=== PATIENT | female | born 1980 | race Caucasian/White ===

== ENCOUNTER 2025-01-15 14:06 | Inpatient (IN) ==
--- NOTE | 2025-01-15 14:42 | Emergency Department Note ---
Impression & Plan Abdominal pain, Nausea & vomiting, Elevated LFTs, Status post cholecystectomy ED Provider Note CHIEF COMPLAINT: Nausea and vomiting HISTORY OF PRESENTING ILLNESS: This 44-year-old female patient presents to the emergency department for evaluation of nausea, vomiting, and abdominal pain. The patient had her gallbladder removed yesterday by Dr. Hollingsworth for acute cholecystitis. Gallbladder ultrasound yesterday showed gallbladder stones and sludge with a positive Serna sign and mild wall thickening suggesting acute cholecystitis. Common bile duct was normal. No evidence of choledocholithiasis or biliary obstruction. White blood cell count elevated at 12.27, but CBC otherwise normal. CMP was normal without elevated LFTs. Lipase was normal. She was given IV Zosyn preoperatively. She has had uncontrolled nausea and vomiting at home and has been unable to keep anything down. She has been taking Zofran and oxycodone without improvement of her pain or nausea. She still has an abdominal binder in place. She has had chills, but no fever. The abdominal pain is diffuse over her abdomen. The patient has not been passing gas or having any bowel movements. The pain is also worse with sitting up and taking deep breaths. Denies any chest pain or shortness of breath. REVIEW OF SYSTEMS: See HPI for pertinent positives and pertinent negatives. ALLERGIES: Bactrim MEDICATIONS: See below PAST MEDICAL HISTORY: See below PHYSICAL EXAM: VITALS: Vitals are noted on the nurse's note and reviewed by myself. GENERAL: Non toxic, in no acute distress, non-diaphoretic. SKIN: The patient surgical incision sites appear to be healing well without signs of infection. Capillary refill <2 sec. EYES: PERRLA. EOMI. Conjunctivae without injection, sclerae without icterus. NOSE: Patent without discharge. MOUTH: Mucous membranes moist. Uvula midline. Airway patent. NECK: Supple without nuchal rigidity. HEART: Regular rate and rhythm without murmurs gallops or rubs. LUNGS: Clear to auscultation bilaterally without wheezes, rales or rhonchi. No retractions or accessory muscle use. ABDOMEN: The patient's abdominal binder was released and the patient actually had some improvement of her pain after the binder was released. Positive bowel sounds x 4. The patient's abdomen is soft with diffuse tenderness to palpation, but no guarding, rigidity, or rebound tenderness. No CVA tenderness. No focal RLQ or LLQ tenderness. NEURO: Patient was alert and oriented. No focal neurological deficits. DIFFERENTIAL DIAGNOSIS: Differential diagnosis includes hepatitis, pancreatitis, cholecystitis, cholelithiasis, choledocholithiasis, complications from surgery, appendicitis, kidney stone, pyelonephritis, UTI, gastritis, gastroenteritis, mesenteric adenitis, obstruction, constipation, hernia, abdominal abscess, perforation, diverticulitis, IBD, ischemic colitis, abdominal aortic aneurysm, , ectopic , ovarian cyst, ovarian torsion, acute salpingitis, or others. ED COURSE AND MEDICAL DECISION MAKING: MEDICATIONS GIVEN: 1 L normal saline solution bolus. Morphine 4 mg IV and Zofran 4 mg IV. Tylenol 1000 mg IV. Morphine 2 mg IV. Dilaudid 0.5 mg IV. Phenergan 12.5 mg IV. MONITOR: Continuous residential monitor: Order was placed for continuous residential monitor. Patient was placed on the residential monitor and continuous pulse ox. Patient was noted to be in normal sinus rhythm at an initial rate of 90 bpm per my interpretation. INTERPRETATION OF LABS: I interpreted the labs with full lab results as below in the lab section of this note. Laboratory results pertinent to the emergent complaint are discussed in the MDM section below. The patient was advised to follow up with their PCP and/or specialist(s) for further outpatient monitoring and management of any abnormal results. INTERPRETATION OF IMAGING: Imaging studies were interpreted by myself and read by radiology as per the imaging section of this note. The patient was advised to follow up with their PCP and/or specialist(s) for further outpatient management of any non-emergent abnormal findings. Right upper quadrant ultrasound is status post cholecystectomy. Small amount of free fluid adjacent to the liver. Common bile duct is normal at 3 mm. EXTERNAL RECORDS REVIEWED: I reviewed the patient's surgical notes and operative note as summarized above. CONSULTATIONS: Dr. Hollingsworth of general surgery MDM SUMMARY: I examined the patient. The patient had a cholecystectomy yesterday secondary to acute cholecystitis. The patient has had continued pain, nausea, and vomiting that has not been controlled with her oxycodone and Zofran at home. The patient does feel somewhat improved after release of the binder, but she continues to be symptomatic. The patient has not had any fevers. An IV lock was placed and labs were drawn. The patient was given 1 L normal saline solution bolus and medicated as above. I spoke with Dr. Hollingsworth via [place] text initially in regards to recommended imaging/workup. She recommended to start with laboratory studies and if laboratory studies including LFTs/lipase were normal, imaging was likely unneeded. However, if the patient's LFTs were elevated, an ultrasound should be obtained. The patient's white blood cell count was elevated at 14.63. Hemoglobin normal at 13.1. Platelet count normal at 288. INR 1.2 and PT 12.1. Glucose 108, total bilirubin 2.0, AST 63, and ALT 86. CMP otherwise normal. Lipase normal. Urinalysis appears more contaminated than infected. The patient's LFTs were normal yesterday, but now her total bilirubin, AST, and ALT are elevated. Therefore, a right upper quadrant ultrasound was obtained. Right upper quadrant ultrasound is status post cholecystectomy. Small amount of free fluid adjacent to the liver. Common bile duct is normal at 3 mm. The patient was still having pain and nausea despite the above medications. She was given a p.o. trial, but got nauseous every time she ate. I spoke with Dr. Hollingsworth who recommended admission for continued management of her pain and nausea as well as repeat laboratory studies and continued monitoring of her symptoms. Vitaly Pelaez PA-C of general surgery presented to the emergency department to evaluate the patient. Please refer to his dictation for further details. The patient's care was transferred in stable condition. DIAGNOSIS: Abdominal pain status post cholecystectomy Elevated LFTs Nausea and vomiting Past Med/Surg History Problem List (Updated 01/16/25 @ 12:40 by Arielle Merino PA-C) Status post cholecystectomy (Acute) Elevated LFTs (Acute) Nausea & vomiting (Acute) Abdominal pain (Acute) Post-operative nausea and vomiting Acute cholecystitis (Acute) Right upper quadrant abdominal pain (Acute) Numbness and tingling in both hands Medical History Eczema Psoriasis Surgical History S/P insertion of dental implant H/O tooth extraction H/O LEEP Social History Smoking Status: Former smoker Tobacco Type: Cigarettes Smoking End Date: 2011; Second Hand Exposure: No; Do You Dip or Chew Tobacco: No; Hx Alcohol Use: Yes Alcohol type: hard liquor Hx Substance Use: No Preferred Language: [place] Communication Ability: Effective Engineering Agent Required: No Beliefs That Will Affect Care: None Current Living Situation: Significant Other Other Information That Helps Us Care for You: No Feels Safe at Home: Yes Safety Concerns: Feels Safe At This Time Assistive Devices: None Allergies Allergies Allergy/AdvReac Type Severity Reaction Status Date / Time Sulfa (Sulfonamide Allergy Unknown UNKNOWN-CHILDHOOD Verified 01/14/25 08:25 Antibiotics) ALLERGY sulfamethoxazole Allergy Unknown UNKNOWN-CHILDHOOD Verified 01/14/25 08:25 [From Bactrim] ALLERGY trimethoprim [From Bactrim] Allergy Unknown UNKNOWN-CHILDHOOD Verified 01/14/25 08:25 ALLERGY Home Meds Home Medications Medication Instructions Recorded Confirmed carbamazepine 100 mg 100 mg PO Q OTHER DAY 01/14/25 01/15/25 tablet,extended release,12 hr folic acid 400 mcg tablet 0.4 mg PO DAILY 01/14/25 01/15/25 guselkumab 100 mg/mL subcutaneous 100 mg subcut .Q8WKS 01/14/25 01/15/25 syringe (Tremfya) ketoconazole 2 % shampoo 1 ea topical DIRECTED PRN 01/14/25 01/15/25 NEEDED medroxyprogesterone 150 mg/mL 150 mg IM .[id number] 01/14/25 01/15/25 intramuscular syringe (Depo-Provera) semaglutide (weight loss) 2.4 2.4 mg subcut WK 01/14/25 01/15/25 mg/0.75 mL subcutaneous pen injector (Sanaz) spironolactone 50 mg tablet 50 mg PO BID 01/14/25 01/15/25 triamcinolone acetonide 0.1 % 1 applic topical DIRECTED PRN 01/14/25 01/15/25 topical cream SKIN IRRITATIONS loratadine 10 mg tablet (Claritin) 10 mg PO DAILY 01/15/25 01/15/25 zinc 50 mg tablet 50 mg PO DAILY 01/15/25 01/15/25 Previous Rx's Medication Instructions Recorded oxycodone 5 mg tablet 5 mg PO Q4H PRN severe pain (scale 01/14/25 score 7-10) #20 tabs ondansetron 8 mg disintegrating 8 mg PO Q8H PRN nausea and 01/15/25 tablet vomiting #30 tabs Results & Data (ED) Vital Signs Vital Signs - 24 hr 01/15/25 14:16 01/15/25 15:07 01/15/25 15:12 Temperature 36.9 C Temperature Source Temporal Artery Scan Pulse Rate 93 H 81 99 H Pulse Rate [Right Finger] Pulse Rhythm Regular Pulse Rhythm [Right Finger] Pulse Strength [Right Finger] Respiratory Rate 16 Respiratory Effort / Characteristics Non-Labored Spontaneous Respiratory Depth Normal Respiratory Pattern Regular Blood Pressure 170/87 H Blood Pressure [Left Arm] Blood Pressure Mean 114 Blood Pressure Mean [Left Arm] Blood Pressure Position Sitting Blood Pressure Position [Left Arm] Pulse Oximetry 99 96 Oxygen Delivery Method Room Air Room Air Sepsis Recent Fever Within 48 Hours No Sepsis New/Unexplained Change in Mental Status No Sepsis Action Taken by Nursing No Action Required 01/15/25 17:14 01/15/25 19:00 01/15/25 19:30 Temperature 36.6 C Temperature Source Oral Pulse Rate 97 H Pulse Rate [Right Finger] 87 75 Pulse Rhythm Pulse Rhythm [Right Finger] Regular Pulse Strength [Right Finger] Normal Respiratory Rate 18 18 Respiratory Effort / Characteristics Non-Labored Spontaneous Non-Labored Spontaneous Respiratory Depth Normal Normal Respiratory Pattern Regular Regular Blood Pressure Blood Pressure [Left Arm] 169/90 H 137/97 Blood Pressure Mean Blood Pressure Mean [Left Arm] 116 110 Blood Pressure Position Blood Pressure Position [Left Arm] Semi-fowlers Pulse Oximetry 100 97 Oxygen Delivery Method Room Air Room Air Sepsis Recent Fever Within 48 Hours Sepsis New/Unexplained Change in Mental Status Sepsis Action Taken by Nursing 01/15/25 20:00 Temperature 36.7 C Temperature Source Oral Pulse Rate Pulse Rate [Right Finger] 76 Pulse Rhythm Pulse Rhythm [Right Finger] Pulse Strength [Right Finger] Respiratory Rate 18 Respiratory Effort / Characteristics Non-Labored Spontaneous Respiratory Depth Normal Respiratory Pattern Regular Blood Pressure Blood Pressure [Left Arm] 117/78 Blood Pressure Mean Blood Pressure Mean [Left Arm] 91 Blood Pressure Position Blood Pressure Position [Left Arm] Pulse Oximetry 97 Oxygen Delivery Method Room Air Sepsis Recent Fever Within 48 Hours Sepsis New/Unexplained Change in Mental Status Sepsis Action Taken by Nursing Laboratory Data 01/16/25 05:56 01/16/25 05:56 Lab Results 01/15/25 Range/Units 15:10 WBC 14.63 H (4.8-10.8) K/ul RBC 4.12 L (4.20-5.40) M/uL Hgb 13.1 (12.0-16.0) g/dL Hct 37.2 (37.0-47.0) % MCV 90.3 (80.0-100.0) fL MCH 31.8 (25.0-34.0) pg MCHC 35.2 (32.0-36.0) g/dL RDW Std Deviation 39.7 (36.4-46.3) fL RDW Coeff of Crystal 12.0 (11.5-14.5) % Plt Count 288 (130-400) K/uL MPV 9.8 (9.4-12.4) fL Immature Gran % (Auto) 0.3 % Neut % (Auto) 85.2 % Lymph % (Auto) 6.5 % [place] % (Auto) 7.8 % Eos % (Auto) 0.1 % Baso % (Auto) 0.1 % Neut # (Auto) 12.47 H (1.40-6.50) K/uL Lymph # (Auto) 0.95 L (1.20-3.40) K/uL [place] # (Auto) 1.14 H (0.11-0.59) K/uL Eos # (Auto) 0.01 (0.00-0.50) K/uL Baso # (Auto) 0.02 (0.00-0.20) K/uL Immature Gran # (Auto) 0.04 (0.01-0.20) K/uL PT 12.1 H (9.0-12.0) Seconds INR 1.2 H (0.9-1.1) Sodium 139 (136-145) mmol/L Potassium 3.5 (3.5-5.1) mmol/L Chloride 106 (98-107) mmol/L Carbon Dioxide 26 (21-32) mmol/L Anion Gap 7 (3-11) BUN 7 (6-23) mg/dl Creatinine 0.65 (0.6-1.2) mg/dl Est Cr Clr Drug Dosing 119.8 ml/min eGFR 111.27 BUN/Creatinine Ratio 10.8 (10-20) Glucose 108 H (70-99(Fasting)) mg/dl Calcium 8.6 (8.6-10.3) mg/dl Total Bilirubin 2.0 H D (0.2-1.0) mg/dl AST 63 H (13-39) U/L ALT 86 H (7-52) U/L Alkaline Phosphatase 57 (34-104) U/L Total Protein 6.8 (6.0-8.3) gm/dl Albumin 3.8 (3.4-5.0) gm/dl Globulin 3.0 (2.5-4.0) gm/dl Albumin/Globulin Ratio 1.3 (0.9-2) Lipase 17 (11-82) U/L Urine Color Yellow Urine Appearance Clear (Clear) Urine pH 7.0 (4.5-7.5) Ur Specific [place] 1.014 (1.000-1.030) Urine Protein 1+ H (Negative) Urine Glucose (UA) Negative (Negative) Urine Ketones Trace H (Negative) Urine Blood Negative (Negative) Urine Nitrite Negative (Negative) Urine Bilirubin Negative (Negative) Urine Urobilinogen Negative (Negative) Ur Leukocyte Esterase Negative (Negative) Urine WBC (Auto) 6-10 H (0-5) /hpf Urine RBC (Auto) 0-2 (0-2) /hpf U Hyaline Cast (Auto) 3-5 H (0-2) /lpf U Epithel Cells (Auto) 3-5 H (0-2) /hpf Urine Bacteria (Auto) None Seen (None Seen) Urine Comment Administered Medications Sodium Chloride (Nss) 1,000 mls @ 125 mls/hr IV .Q8H [facility] Stop: 01/18/25 19:59 Last Admin: 01/16/25 04:17 Dose: 125 mls/hr Documented By: latasha Infusion: 01/16/25 04:12 Dose: Infused Documented By: latasha Admin: 01/15/25 20:12 Dose: 125 mls/hr Documented By: [email or web address] Acetaminophen (Ofirmev) 1,000 mg in 100 mls @ 400 mls/hr IV Q8H PRN PRN Reason: Moderate Pain (Scale 4, 5, 6) Stop: 01/18/25 22:59 Last Infusion: 01/16/25 07:58 Dose: Infused Documented By: Admin: 01/16/25 07:43 Dose: 400 mls/hr Documented By: Infusion: 01/15/25 23:56 Dose: Infused Documented By: latasha Admin: 01/15/25 23:29 Dose: 400 mls/hr Documented By: latasha Prochlorperazine 10 mg/ (Syringe) 10 mls @ 5 mls/min IV Q6H PRN PRN Reason: Nausea And Vomiting Stop: 02/15/25 09:53 Last Admin: 01/16/25 10:55 Dose: 5 mls/min Documented By: COREY Ondansetron HCl (Ondansetron Inj 2 Mg/Ml 2 Ml Vial) 4 mg IV Q6H PRN PRN Reason: Nausea And Vomiting Stop: 02/14/25 19:58 Last Admin: 01/16/25 09:08 Dose: 4 mg Documented By: Admin: 01/15/25 23:33 Dose: 4 mg Documented By: latasha Discontinued Medications Hydromorphone HCl (Hydromorphone Inj 0.5 Mg/0.5 Ml Syr) 0.5 mg IV NOW STA Stop: 01/15/25 16:52 Last Admin: 01/15/25 17:13 Dose: 0.5 mg Documented By: MR Hydromorphone HCl (Hydromorphone Inj 0.5 Mg/0.5 Ml Syr) 0.5 mg IV Q4H PRN PRN Reason: Severe Pain (Scale 7, 8, 9,10) Stop: 01/30/25 09:53 Last Admin: 01/16/25 10:14 Dose: 0.5 mg Documented By: COREY Sodium Chloride (Nss) 1,000 mls @ 999 mls/hr IV .Q1H1M ONE Stop: 01/15/25 15:56 Last Infusion: 01/15/25 16:19 Dose: Infused Documented By: [email or web address] Admin: 01/15/25 15:11 Dose: 999 mls/hr Documented By: [email or web address] Acetaminophen (Ofirmev) 1,000 mg in 100 mls @ 400 mls/hr IV NOW STA Stop: 01/15/25 15:49 Last Infusion: 01/15/25 16:01 Dose: Infused Documented By: [email or web address] Admin: 01/15/25 15:43 Dose: 400 mls/hr Documented By: [email or web address] Promethazine HCl (Phenergan) 12.5 mg in 50.5 mls @ 202 mls/hr IV NOW STA Stop: 01/15/25 19:40 Last Infusion: 01/15/25 19:50 Dose: Infused Documented By: [email or web address] Admin: 01/15/25 19:33 Dose: 202 mls/hr Documented By: [email or web address] Morphine Sulfate (Morphine Sulfate 4 Mg/Ml 1 Ml Carp\Vial) 4 mg IV NOW STA Stop: 01/15/25 14:57 Last Admin: 01/15/25 15:11 Dose: 4 mg Documented By: [email or web address] Morphine Sulfate (Morphine Sulfate 2 Mg/Ml Carp) 2 mg IV NOW STA Stop: 01/15/25 16:04 Last Admin: 01/15/25 16:11 Dose: 2 mg Documented By: abhishek Morphine Sulfate (Morphine Sulfate 4 Mg/Ml 1 Ml Carp\Vial) 3 mg IV Q3H PRN PRN Reason: Severe Pain (Scale 7, 8, 9,10) Stop: 01/29/25 19:58 Last Admin: 01/16/25 09:08 Dose: 3 mg Documented By: Admin: 01/15/25 22:18 Dose: 3 mg Documented By: latasha Ondansetron HCl (Ondansetron Inj 2 Mg/Ml 2 Ml Vial) 4 mg IV NOW STA Stop: 01/15/25 14:57 Last Admin: 01/15/25 15:11 Dose: 4 mg Documented By: [email or web address] Discharge Plan Visit Data Chief Complaint: Vomiting Stated Complaint: CAN'T KEEP ANYTHING DOWN SINCE ED Provider: Hugo Gómez ED Midlevel Provider: Arielle Merino Discharge Problem: Abdominal pain, Nausea & vomiting, Elevated LFTs, Status post cholecystectomy Patient Disposition: Admitted As Inpatient Condition: Fair Discharge Instructions Interventions: ED Discharge Assessment Last Done: 01/15/25 20:31 Discharge Problem: Abdominal pain Qualifiers: Abdominal location: generalized Qualified Code(s): R10.84 - Generalized abdominal pain Nausea & vomiting Qualifiers: Vomiting type: unspecified Qualified Code(s): R11.2 - Nausea with vomiting, unspecified
[2025-01-15] MEDS: ONDANSETRON INJ 2 MG/ML 2 ML VIAL IV STA (15:11)
[2025-01-15] MEDS: SODIUM CHLORIDE 0.9% 1,000 ML IV ONE (15:11)
[2025-01-15] MEDS: MoRPHine SULFATE 4 MG/ML 1 ML CARP\\VIAL IV STA (15:11)
[2025-01-15 15:24] LABS: Hematocrit (blood only) 37.2 % (37.0-47.0); Hemoglobin 13.1 g/dL (12.0-16.0); Immature Granulocytes # (auto) 0.04 K/uL (0.01-0.20); Immature Granulocytes % (auto) 0.3 %; Mean Corpuscular Hemoglobin 31.8 pg (25.0-34.0); Mean Corpuscular Volume 90.3 fL (80.0-100.0); Platelet Count 288 K/uL (130-400); RDW Standard Deviation 39.7 fL (36.4-46.3); Red Blood Count 4.12 M/uL (4.20-5.40); White Blood Count 14.63 K/ul (4.8-10.8)
[2025-01-15 15:27] LABS: Appearance Urine Clear (Clear); Bacteria Urine Automated None Seen (None Seen); Glucose Urine UA Negative (Negative); RBC Urine Automated 0-2 /hpf (0-2)
[2025-01-15] MEDS: ACETAMINOPHEN 1,000 MG/100 ML VIAL IV STA (15:43)
[2025-01-15 15:50] LABS: Alanine Aminotransferase 86.0 U/L (7-52); Albumin Globulin Ratio 1.3 (0.9-2); Albumin Level 3.8 gm/dl (3.4-5.0); Alkaline Phosphatase 57.0 U/L (34-104); Anion Gap 7.0 (3-11); Bilirubin,Total 2.0 mg/dl (0.2-1.0); Blood Urea Nitrogen 7.0 mg/dl (6-23); Calcium 8.6 mg/dl (8.6-10.3); Carbon Dioxide 26.0 mmol/L (21-32); Chloride 106.0 mmol/L (98-107); Creatinine Clr Calc Pharmacy 119.8 ml/min; Globulin 3.0 gm/dl (2.5-4.0); Glucose 108.0 mg/dl (70-99(Fasting)); Lipase 17.0 U/L (11-82); Potassium 3.5 mmol/L (3.5-5.1); Sodium 139.0 mmol/L (136-145); Total Protein 6.8 gm/dl (6.0-8.3)
[2025-01-15] MEDS: MoRPHine SULFATE 2 MG/ML CARP IV STA (16:11)
[2025-01-15] MEDS: HYDROmorphone INJ 0.5 MG/0.5 ML SYR IV STA (17:13)
--- NOTE | 2025-01-15 17:51 | Ultrasound Report ---
INDICATION: Cholecystectomy COMPARISON: None. TECHNIQUE: Real-time ultrasound examination of the right upper quadrant was performed. FINDINGS: LIVER: Normal echogenicity of the liver. No hepatic masses. GALLBLADDER: Surgically absent CBD: Measures 3 mm. RIGHT KIDNEY: No hydronephrosis or nephrolithiasis. No solid renal lesions. PANCREAS: Partially obscured by overlying bowel gas. RETROPERITONEUM: No AAA. IVC: Patent. OTHER: Small amount of free fluid adjacent to the liver. IMPRESSION: Status post cholecystectomy. Small amount of free fluid adjacent to the liver. Electronically signed by Stephanie Hinds 01-15-2025 5:50 PM
[2025-01-15] MEDS: PROMETHAZINE 12.5 MG/50.5 ML BAG IV STA (19:33)
--- NOTE | 2025-01-15 19:58 | History & Physical Report ---
<Statement entered by Mali Hollingsworth DO - 01/15/25 20:03> This case has been discussed with the surgical PA and I agree with this plan Date of Service January 15, 2025 Assessment & Plan (1) Post-operative nausea and vomiting: Plan: The patient was evaluated in room A4 in the emergency department due to her clinical presentation, recent surgery, and findings on labs she will be admitted to the surgical service proceeding as follows: Feel the acceptable for patient have clear liquids but we will make her n.p.o. after midnight Will hydrate her with IV fluids Analgesics to be provided Antiemetics will be provided The patient is now noted to have elevated bilirubin and transaminases with cause not yet ascertainedstatus this raises the possibility that due to recent cholecystectomy if the patient may have a retained gallstone. Will therefore repeat the patient's LFTs in the morning of 01/16/2025. If her LFTs become worse or remain elevated then consideration will be given to performing an MRCP to see if patient has choledocholithiasis and if this is present a gastroenterology consultation will be obtained At the time of my interview the patient was nontoxic-appearingshe is normotensive with only slight tachycardia with heart rate in the 90s. She has been afebrile. Will use SCDs for DVT prevention, no chemical means until is ascertain whether or not patient require any further procedural intervention Additional recommendations be forthcoming based on her clinical course as unfolds She will be a level 1 full code History of Present Illness Chief Complaint: Abdominal pain/nausea and vomiting status postcholecystectomy Primary Care Provider: Dm Evans MD This is a 44-year-old female who is well-known to [facility] group general surgery. The patient was seen on 01/06/[address] Gregorio secondary to acute cholecystitis. On 01/14/2025 the patient underwent a laparoscopic cholecystectomy and the patient was able to be discharged home the day of her procedure. The patient does note that she was initially doing well following her procedure. The patient did note that on 01/15/2025 she had some worsening abdominal pain as well as some persistent nausea and vomiting with inability to tolerate much in the way of oral intake. She notes that since her surgery she has not had a bowel movement or passed any flatus. She denies any fevers, shakes, or chills. She denies any chest pain or shortness of breath. She notes that she is urinating without difficulty. She does not report any jaundice of her eyes or skin. Because of her persistent problems she presented to the emergency department. Since arrival to the emergency department she did have labs and imaging which I independently reviewed. She did have a gallbladder/right upper quadrant ultrasound that showed the gallbladder was surgically absent. There is a small amount of free fluid adjacent to the liver. Labs included CBC white blood cell count was elevated 14.6. Hemoglobin and hematocrit were both within normal range. Platelet count was normal. Her chemistry profile showed sodium and potassium as well as the BUN and creatinine were normal. Her total bilirubin was now elevated at 2.0. Her AST and ALT were 63 and 86 respectively. Should be noted that all of these LFT values were normal prior to her surgery. Her phosphatase today is normal at 57 and her lipase is not elevated. Patient does have a urinalysis which is negative for nitrites and leukocyte esterase. She had no bacteria in the specimen and has 6-10 white blood cells per high-power field. The patient did receive analgesics and antiemetics in the emergency department but still was having some persistent nausea and vomiting and therefore admission was requested. At the time of my interview the patient was nontoxic-appearing and she was resting comfortably in bed in no distress Allergies Allergy/AdvReac Type Severity Reaction Status Date / Time Sulfa (Sulfonamide Allergy Unknown UNKNOWN-CHILDHOOD Verified 01/14/25 08:25 Antibiotics) ALLERGY sulfamethoxazole Allergy Unknown UNKNOWN-CHILDHOOD Verified 01/14/25 08:25 [From Bactrim] ALLERGY trimethoprim [From Bactrim] Allergy Unknown UNKNOWN-CHILDHOOD Verified 01/14/25 08:25 ALLERGY Home Medications Medication Instructions Recorded Confirmed Type carbamazepine 100 mg 100 mg PO Q OTHER DAY 01/14/25 01/15/25 History tablet,extended release,12 hr folic acid 400 mcg tablet 0.4 mg PO DAILY 01/14/25 01/15/25 History guselkumab 100 mg/mL subcutaneous 100 mg subcut .[id number] 01/14/25 01/15/25 History syringe (Tremfya) ketoconazole 2 % shampoo 1 ea topical DIRECTED PRN 01/14/25 01/15/25 History NEEDED medroxyprogesterone 150 mg/mL 150 mg IM .[id number] 01/14/25 01/15/25 History intramuscular syringe (Depo-Provera) oxycodone 5 mg tablet 5 mg PO Q4H PRN severe pain (scale 01/14/25 01/15/25 Rx score 7-10) #20 tabs semaglutide (weight loss) 2.4 2.4 mg subcut WK 01/14/25 01/15/25 History mg/0.75 mL subcutaneous pen injector (Werenettavy) spironolactone 50 mg tablet 50 mg PO BID 01/14/25 01/15/25 History triamcinolone acetonide 0.1 % 1 applic topical DIRECTED PRN 01/14/25 01/15/25 History topical cream SKIN IRRITATIONS loratadine 10 mg tablet (Claritin) 10 mg PO DAILY 01/15/25 01/15/25 History ondansetron 8 mg disintegrating 8 mg PO Q8H PRN nausea and 01/15/25 01/15/25 Rx tablet vomiting #30 tabs zinc 50 mg tablet 50 mg PO DAILY 01/15/25 01/15/25 History Past Med/Surg History Problem List Post-operative nausea and vomiting Acute cholecystitis (Acute) Right upper quadrant abdominal pain (Acute) Numbness and tingling in both hands Medical History Eczema Psoriasis Surgical History S/P insertion of dental implant H/O tooth extraction H/O LEEP Social History Smoking Status: Never smoker Tobacco Type: Cigarettes Second Hand Exposure: No; Do You Dip or Chew Tobacco: No; Hx Alcohol Use: Yes Hx Substance Use: No Preferred Language: Nepalese Communication Ability: Effective Health Information Manager Required: No Beliefs That Will Affect Care: None Current Living Situation: Significant Other Feels Safe at Home: Yes Review of Systems Review of Systems: All systems reviewed & are unremarkable except as noted in HPI & below Physical Exam Constitutional: WD/WN, vitals as above Eyes: No scleral jaundice ENMT: Ears: no hearing impairment and no external ear abnormality No sublingual jaundice Neck: trachea midline Respiratory: normal respiratory effort; no respiratory distress and no labored breathing Cardiovascular: Rate/Rhythm: regular rate and regular rhythm Gastrointestinal (Abdomen): Abdomen is soft without distention. It is nonrigid. There is no rebound tenderness or guarding. Patient has 4 laparoscopic incisions consistent with cholecystectomy. All incisions are clean, dry, and intact. She has expected tenderness over her surgical incisions. Musculoskeletal: No calf tenderness Skin: no jaundice Neurologic: moves all extremities Psychiatric: A+Ox3, euthymic affect Results & Data Results & Data Vital Signs (Past 12 Hours) Vital Signs Temp Pulse Pulse Resp BP BP Pulse Ox 01/15/25 19:30 97 H 01/15/25 19:00 75 18 137/97 97 01/15/25 17:14 36.6 C 87 18 169/90 H 100 01/15/25 15:12 99 H 01/15/25 15:07 81 96 01/15/25 14:16 36.9 C 93 H 16 170/87 H 99 O2 Del Method 01/15/25 19:30 01/15/25 19:00 Room Air 01/15/25 17:14 Room Air 01/15/25 15:12 01/15/25 15:07 Room Air 01/15/25 14:16 Room Air PG Care Time/CCT Total # of Minutes Spent Total Time Spent with Patient: Total time spent is greater than 50% in coordination of care (as documented) at patient's floor/unit and/or counseling patient: Coding Level of Care Code None Diagnoses Post-operative nausea and vomiting R11.2; Z98.890
[2025-01-15] MEDS: SODIUM CHLORIDE 0.9% 1,000 ML IV SCH (20:12)
[2025-01-15 20:32] LABS: INR 1.2 (0.9-1.1); Prothrombin Time 12.1 Seconds (9.0-12.0)
[2025-01-15] MEDS: MoRPHine SULFATE 4 MG/ML 1 ML CARP\\VIAL IV PRN (22:18)
[2025-01-15] MEDS: ACETAMINOPHEN 1,000 MG/100 ML VIAL IV PRN (23:29)
[2025-01-15] MEDS: ONDANSETRON INJ 2 MG/ML 2 ML VIAL IV PRN (23:33)
[2025-01-16 06:22] LABS: Hematocrit (blood only) 35.0 % (37.0-47.0); Hemoglobin 11.9 g/dL (12.0-16.0); Immature Granulocytes # (auto) 0.05 K/uL (0.01-0.20); Immature Granulocytes % (auto) 0.4 %; Mean Corpuscular Hemoglobin 31.5 pg (25.0-34.0); Mean Corpuscular Volume 92.6 fL (80.0-100.0); Platelet Count 245 K/uL (130-400); RDW Standard Deviation 41.0 fL (36.4-46.3); Red Blood Count 3.78 M/uL (4.20-5.40); White Blood Count 12.09 K/ul (4.8-10.8)
[2025-01-16 06:42] LABS: Alanine Aminotransferase 75.0 U/L (7-52); Albumin Globulin Ratio 1.4 (0.9-2); Albumin Level 3.7 gm/dl (3.4-5.0); Alkaline Phosphatase 52.0 U/L (34-104); Anion Gap 5.0 (3-11); Bilirubin,Total 2.2 mg/dl (0.2-1.0); Blood Urea Nitrogen 6.0 mg/dl (6-23); Calcium 8.2 mg/dl (8.6-10.3); Carbon Dioxide 25.0 mmol/L (21-32); Chloride 107.0 mmol/L (98-107); Creatinine Clr Calc Pharmacy 131.6 ml/min; Globulin 2.6 gm/dl (2.5-4.0); Glucose 107.0 mg/dl (70-99(Fasting)); Lipase 14.0 U/L (11-82); Potassium 4.0 mmol/L (3.5-5.1); Sodium 137.0 mmol/L (136-145); Total Protein 6.3 gm/dl (6.0-8.3)
[2025-01-16 06:50] LABS: INR 1.1 (0.9-1.1); Partial Thromboplastin Time 26 Seconds (21-31); Prothrombin Time 11.9 Seconds (9.0-12.0)
[2025-01-16] MEDS ORDERED: HYDROmorphone INJ 0.5 MG/0.5 ML SYR IV PRN (09:54)
[2025-01-16] MEDS: HYDROmorphone INJ 0.5 MG/0.5 ML SYR IV PRN (10:14)
[2025-01-16] MEDS: PROCHLORPERAZINE 10 MG in SYRINGE 8 ML IV PRN (10:55)
[2025-01-16] MEDS: LORATADINE 10 MG TAB PO SCH (13:28)
[2025-01-16] MEDS: ZINC SULFATE 220 MG CAPSULE PO SCH (13:28)
[2025-01-16] MEDS: FOLIC ACID 400 MCG TAB PO SCH (13:28)
[2025-01-16] MEDS: carBAMazepine XR 100 MG TABCR PO SCH (13:29)
[2025-01-16] MEDS: ACETAMINOPHEN 1,000 MG/100 ML VIAL IV SCH (15:43)
--- NOTE | 2025-01-16 16:06 | Magnetic Resonance Report ---
EXAM: MR MRCP CLINICAL HISTORY: Abdominal pain, elevated LFTs s/p lap daniel TECHNIQUE: Multiplanar multisequence magnetic resonance imaging of the abdomen without intravenous contrast. COMPARISON: US 01/14/2025 FINDINGS: Liver: Enlarged, reaching 19 cm. Homogeneous signal intensity on T2-weighted images. No focal hepatic lesions. Gallbladder: Surgically removed. Subepatic fat stranding with minimal perihepatic fluid. No localized collections. Bile Ducts: Intrahepatic bile ducts are normal in caliber. Prominent CBD reaching 7 mm, with no filling defect, accepted post-cholecystectomy sequels. No evidence of choledocholithiasis. Pancreas: Normal size and contour. Homogeneous signal intensity on T2-weighted images. No masses or cystic lesions. Pancreatic Duct: Pancreatic duct is normal in caliber. No evidence of ductal dilatation or filling defects. Spleen: Normal size and appearance. Homogeneous signal intensity. Kidneys: Normal size, shape, and position of both kidneys. Homogeneous signal intensity on T2-weighted images. No renal stones, masses, or hydronephrosis. Adrenal Glands: Normal size and morphology bilaterally. No adrenal masses. Surrounding Structures: Normal appearance of the visualized bowel loops. Anterior abdominal wall fat stranding, likely postoperative changes. Lower CT chest cuts revealed bilateral pleural reaction with subpleural reticulations and atelectasis bands. IMPRESSION: 1. Surgically removed. Subepatic fat stranding with minimal perihepatic fluid. No localized collections. 2. Prominent CBD reaching 7 mm, with no filling defect, accepted post-cholecystectomy sequels. 3. No evidence of choledocholithiasis. 4. Mild hepatomegaly. 5. Anterior abdominal wall fat stranding, likely postoperative changes. 6. Lower CT chest cuts revealed bilateral pleural reaction with subpleural reticulations and atelectasis bands. Electronically signed by Phong Hartman 01-16-2025 3:59 PM
--- NOTE | 2025-01-16 16:54 | Surgery Progress Note ---
<Statement entered by Mali Hollingsworth, - 01/16/25 18:12> I have seen and examined this patient with the surgical PA. I agree with this plan. MRCP was obtained with dilated CBD to 7mm without evidence for filling defect. She did develop tachycardia this evening along with soft BPs later in the evening and a STAT CTA is being obtained. Date of Service January 16, 2025 Assessment & Plan (1) Status post cholecystectomy: (2) Elevated LFTs: Plan MRCP reviewed and shows no evidence of retained stone or choledocholithiasis, unclear etiology for the patient's persistent abdominal pain. We will try a multimodal pain management regimen with Tylenol [id number], Toradol for moderate pain and low-dose oxycodone for severe pain with Dilaudid for breakthrough. Will also start clear liquids and observe for toleration of this prior to advancement. Will plan on repeating LFTs tomorrow and continue to trend her bilirubin, if it continues to climb we may need to involve gastroenterology for possible ERCP. Zofran for nausea, Compazine for nausea refractory to Zofran, Lovenox for DVT prophylaxis, activity as tolerated. No antibiotics at this time, trend white blood cell count and temps. Admission and Anticipated Discharge Date Admission Date: January 15, 2025 Subjective Patient currently admits to moderate abdominal pain, localized to the left side, worse with movement, somewhat better at rest, only somewhat well-tolerated with current pain medication regimen. Patient states that she initially felt that this could be related to gas pain, tried taking [id number] Gas-X with no relief. Patient had significant nausea earlier, Zofran was ineffective, however Compazine did provide her some relief. Denies vomiting., no chest pain or shortness of breath, no fevers or chills, however had a Tmax of 37.9 and has been mildly tachycardic. White blood cell count is mildly elevated at 12.0, but down from yesterday at 14.6, not on any antibiotics. This morning, LFTs were slightly elevated with a bilirubin of 2.2, up from yesterday at 2.0. Her AST ALT and alk phos were all slightly down compared to yesterday's labs. Patient had an MRCP today which showed a mildly dilated CBD, but no evidence of any stones or strictures. There was a small amount of fluid in the gallbladder fossa, and evidence of atelectasis. Physical Exam Physical Exam: Gen: Awake and alert, resting comfortably in bed in NAD CV: RRR PULM: non-labored breathing Abd: Abd soft, obese, moderate to generalized tenderness to palpation, seemed slightly worse on the left side, no guarding, rigidity, or peritoneal signs. L aparoscopic incisions are well-approximated with skin glue in place, no surrounding erythema, warmth, swelling, or increased tenderness to palpation. ext: no edema to bilateral lower ext, SCDs in place, non-tender, feet warm and well perfused Results & Data Vital Signs (Past 12 Hours) Vital Signs Temp Pulse Resp BP BP Pulse Ox O2 Del Method 01/16/25 14:50 36.8 C 116 H 16 121/75 95 Room Air 01/16/25 10:11 36.4 C L 99 H 22 165/103 H 99 Room Air 01/16/25 09:02 36.5 C 01/16/25 07:10 37.9 C H 106 H 17 115/76 97 Room Air Diagnostic Findings MRCP: IMPRESSION: 1. Surgically removed. Subepatic fat stranding with minimal perihepatic fluid. No localized collections. 2. Prominent CBD reaching 7 mm, with no filling defect, accepted post-cholecystectomy sequels. 3. No evidence of choledocholithiasis. 4. Mild hepatomegaly. 5. Anterior abdominal wall fat stranding, likely postoperative changes. 6. Lower CT chest cuts revealed bilateral pleural reaction with subpleural reticulations and atelectasis bands. PG Care Time/CCT Total # of Minutes Spent Total Time Spent with Patient: Total time spent is greater than 50% in coordination of care (as documented) at patient's floor/unit and/or counseling patient: [place] [address] Post Operative Follow-Up Patient Type Established History Problem Focused Exam Problem Focused Medical Decision Making Straight Forward Diagnoses Status post cholecystectomy Z90.49 Elevated LFTs R79.89
[2025-01-16] MEDS: LACTATED RINGER'S 1,000 ML IV ONE (17:33)
[2025-01-16] MEDS: OPTIRAY 320 125ml IV ONE (18:26)
--- NOTE | 2025-01-16 18:44 | CT Scan Report ---
EXAMINATION: CT of the abdomen and pelvis performed after the administration of IV contrast TECHNIQUE: Helical CT images from the lung bases through the symphysis pubis were obtained with contrast. Coronal and sagittal reformatted images were generated at a workstation for further assessment. Dose reduction techniques were achieved by using automatic exposure control and/or adjustment of mA and/or kV according to patient size and/or use of iterative reconstruction technique. COMPARISON: None HISTORY: Abdominal pain FINDINGS: Lower chest: No consolidation. No pleural effusion or pneumothorax. Streaky bandlike atelectasis throughout the lung bases. Liver: No suspicious liver lesions. Portal veins appear patent. Gallbladder: Cholecystectomy. Mild expected postoperative inflammatory changes seen at the cholecystectomy bed. No focal fluid collection. No significant free fluid. Spleen: Normal size. Pancreas: No suspicious pancreatic lesions. The pancreatic duct is not dilated. Adrenal glands: No adrenal nodules. Kidneys: No hydronephrosis or obstructing renal stones. Bladder / Pelvic organs: Unremarkable. Bowel: No bowel obstruction. No abnormal bowel wall thickening. The appendix is unremarkable. Several nondilated loops of fluid-filled small bowel. There is mild fluid in the large bowel. Lymph nodes: No retroperitoneal, mesenteric, or pelvic lymphadenopathy. Peritoneum / Retroperitoneum: No free fluid or air within the abdomen. Vessels: No infrarenal aortic aneurysm. Bones and soft tissues: No suspicious lesion in the bones. Inflammatory changes about the umbilicus, presumably from laparoscopic port placement. There is also some generalized subcutaneous inflammatory fat stranding over the right upper quadrant of the abdominal wall. IMPRESSION: Cholecystectomy changes seen without evidence for complication. Cellulitis over the right upper quadrant abdominal wall. Electronically signed by Andrea Alicia 01-16-2025 6:39 PM
--- NOTE | 2025-01-16 18:45 | CT Scan Report ---
CT pulmonary angiogram with IV contrast History: Chest pain COMPARISON: None TECHNIQUE: CT angiography of the chest was performed without IV contrast followed by IV contrast, including 3D post processing CTA image reconstruction. Dose reduction techniques were achieved by using automatic exposure control and/or adjustment of mA and/or kV according to patient size and/or use of iterative reconstruction technique. FINDINGS: Diagnostic quality: Adequate There is no evidence for pulmonary embolism. The heart is not enlarged. There is no pericardial effusion. There are no abnormally enlarged hilar or mediastinal lymph nodes. The central tracheobronchial tree is clear. Streaky bandlike atelectasis in the lung bases. There is no pleural effusion. Limited visualized upper abdomen. No destructive osseous changes are seen. IMPRESSION: No evidence for pulmonary embolism. Electronically signed by Andrea Alicia 01-16-2025 6:41 PM
[2025-01-16] MEDS: SODIUM CHLORIDE 0.9% 1,000 ML IV SCH (19:22)
[2025-01-16] MEDS: KETOROLAC TROMETHAMINE 15 MG/ML VIAL IV PRN (19:22)
[2025-01-17] MEDS: HYDROmorphone INJ 0.5 MG/0.5 ML SYR IV PRN (00:45)
[2025-01-17 06:24] LABS: Hematocrit (blood only) 31.9 % (37.0-47.0); Hemoglobin 10.8 g/dL (12.0-16.0); Immature Granulocytes # (auto) 0.04 K/uL (0.01-0.20); Immature Granulocytes % (auto) 0.4 %; Mean Corpuscular Hemoglobin 31.1 pg (25.0-34.0); Mean Corpuscular Volume 91.9 fL (80.0-100.0); Platelet Count 237 K/uL (130-400); RDW Standard Deviation 40.6 fL (36.4-46.3); Red Blood Count 3.47 M/uL (4.20-5.40); White Blood Count 9.64 K/ul (4.8-10.8)
[2025-01-17 06:43] LABS: Alanine Aminotransferase 52.0 U/L (7-52); Albumin Globulin Ratio 1.3 (0.9-2); Albumin Level 3.3 gm/dl (3.4-5.0); Alkaline Phosphatase 53.0 U/L (34-104); Anion Gap 7.0 (3-11); Bilirubin,Total 1.5 mg/dl (0.2-1.0); Blood Urea Nitrogen 6.0 mg/dl (6-23); Calcium 8.0 mg/dl (8.6-10.3); Carbon Dioxide 23.0 mmol/L (21-32); Chloride 109.0 mmol/L (98-107); Creatinine Clr Calc Pharmacy 158.4 ml/min; Globulin 2.6 gm/dl (2.5-4.0); Glucose 91.0 mg/dl (70-99(Fasting)); Potassium 3.5 mmol/L (3.5-5.1); Sodium 139.0 mmol/L (136-145); Total Protein 5.9 gm/dl (6.0-8.3)
[2025-01-17] MEDS: ENOXAPARIN INJ 40 MG/0.4 ML SYR SQ SCH (09:17)
--- NOTE | 2025-01-17 10:16 | Surgery Progress Note ---
Date of Service January 17, 2025 Assessment & Plan (1) Status post cholecystectomy: (2) Nausea & vomiting: (3) Elevated LFTs: Plan Pt feels much improved this am. CTA and abdominal CT without acute changes, no PE. She has been afebrile for over 24 hours. Leukocytosis resolved on this am labs T bili slightly elevated, other LFTs returned to normal Advance to regular diet If tolerates and pain remains well controlled on oral medications, will d/c later today Take antiemetic prior to narcotic. Use Ibuprofen and Tylenol between narcotic Continue to ambulate aggressively On Lovenox for DVT ppx Follow up with me in the office in 2 weeks Admission and Anticipated Discharge Date Admission Date: January 15, 2025 Subjective Pt seen and examined this am. She denies nausea or pain this am and states she has been able to move more gas. Had tachycardia overnight and a CTA chest was performed in addition to an abdominal CT. No PE, no significant intra-abdominal findings Physical Exam Constitutional: average body habitus; not ill appearing, not in distress and not diaphoretic Respiratory: normal respiratory effort; no respiratory distress, no labored breathing and does not use accessory muscles Cardiovascular: Rate/Rhythm: regular rate; not tachycardic Gastrointestinal (Abdomen): bruising around incision sites Mild swelling at the umbilical site. Possible small hematoma formation Results & Data Vital Signs (Past 12 Hours) Vital Signs Temp Pulse Resp BP BP Pulse Ox O2 Del Method 01/17/25 07:54 37.0 C 89 17 141/86 H 97 Room Air 01/17/25 03:18 36.8 C 100 H 16 140/94 96 Room Air PG Care Time/CCT Total # of Minutes Spent Total Time Spent with Patient: Total time spent is greater than 50% in coordination of care (as documented) at patient's floor/unit and/or counseling patient: Coding Level of Care Code 94708 Post Operative Follow-Up Diagnoses Status post cholecystectomy Z90.49 Nausea & vomiting R11.2 Vomiting type: unspecified Elevated LFTs R79.89 (2) Nausea & vomiting Vomiting type: unspecified Qualified Code(s): R11.2 - Nausea with vomiting, unspecified
[2025-01-17] MEDS ORDERED: ACETAMINOPHEN 500 MG TAB PO PRN (13:50)
[2025-01-17] MEDS: ACETAMINOPHEN 1,000 MG/100 ML VIAL IV PRN (14:19)
--- NOTE | 2025-01-17 14:30 | Gastrointestinal Consultation ---
Date of Consultation January 17, 2025 Assessment & Plan (1) Status post cholecystectomy: 44 year old female w/ history of TERRY, Raynauds, psoriasis, acute cholecystitis s/p CCY 01/14 admitted w/ abd pain, nausea/vomiting and inability to advance diet. Post operative imaging was largely unremarkable, transaminases were elevated but improving, no CBD stone on imaging. DDX discussed. NPO after midnight for EGD evaluation to rule out PUD vs gastritis vs other. She has been on Wegovy for a few years but denies side effects in the past. Gastroparesis symptoms may be more prominent given the use of narcotic analgesia. I spent a total of 60 minutes on the date of service in review of patient's record, and previously obtained information in person and appropriate medical visit, discussion and education of plan, with patient and/or caregiver, placing orders for tests/referral/procedures as medically necessary and documentation of pertinent clinical information in patient's medical records for their visit today. We appreciate assistance in the management of any serological abnormality and corrections to include: hemoglobin >7, INR <2, platelets >50,000, potassium levels >3.5 but <5.3, and sodium levels within 5 points of the reference range prior to endoscopic evaluation. Thank you for allowing us to participate in the care of this patient. Please call with any acute changes, questions or concerns. Please see addendum below with additional recommendation from my supervising physician. Supervising Physician Co-Signing Physician Notes I saw and examined this patient with our nurse practitioner and agree with her assessment and plan. Patient presents with postcholecystectomy abdominal pain and nausea vomiting with nonspecific nonacute cross-sectional imaging. No findings to suggest a bile leak or pancreatitis. Patient on Wegovy but never had any symptoms of gastroparesis. Consider upper GI pathology in light of postprandial nausea and vomiting. Need to exclude peptic ulcer disease gastric outlet obstruction gastritis. Will proceed with endoscopy tomorrow if okay with surgical team History of Present Illness Reason for Consultation: epigastric pain, n/v s/p lap daniel Requesting Physician: Mali Hollingsworth DO Attending Physician: Mali Hollingsworth DO History of Present Illness 44 year old female w/ history of TERRY, Raynauds, psoriasis, acute cholecystitis s/p CCY 11/28 admitted w/ abd pain, nausea/vomiting. GI was asked to evaluate. She notes post-procedure abd pain, inability to advance diet, bilious emesis. No black or bloody emesis. Last BM was two days ago, no report of black or bloody stools. No fever, chills, CP, SOB. WBC 14 --> 12 --> 9 TB 0.9 --> 2 --> 2.2 -- 1.5 AST 15 --> 63 --> 45 --> 23 ALT 15 --> 86 --> 75 --> 52 ALKP 82 --> 57 --> 52 --> 53 Lipase 14 Chest CTA 2024: No evidence for pulmonary embolism. CTAP 2024: Cholecystectomy changes seen without evidence for complication. Cellulitis over the right upper quadrant abdominal wall. MRCP 2024: Surgically removed. Subepatic fat stranding with minimal perihepatic fluid. No localized collections. Prominent CBD reaching 7 mm, with no filling defect, accepted post-cholecystectomy sequels. No evidence of choledocholithiasis. Mild hepatomegaly. Anterior abdominal wall fat stranding, likely postoperative changes. Lower CT chest cuts revealed bilateral pleural reaction with subpleural reticulations and atelectasis bands. ABD US 2024: Status post cholecystectomy. Small amount of free fluid adjacent to the liver. ABD US 2024: Gallbladder stones and sludge, positive Serna's sign, mild wall thickening, suggesting acute cholecystitis. Colonoscopy 2018: The examined portion of the ileum was normal. - Normal mucosa in the entire examined colon. Fluid aspiration performed. Biopsied. - One 5 mm polyp in the transverse colon, removed with a cold snare. Resected and retrieved. - Internal hemorrhoids. - The examination was otherwise normal. Allergies Allergy/AdvReac Type Severity Reaction Status Date / Time Sulfa (Sulfonamide Allergy Unknown UNKNOWN-CHILDHOOD Verified 01/14/25 08:25 Antibiotics) ALLERGY sulfamethoxazole Allergy Unknown UNKNOWN-CHILDHOOD Verified 01/14/25 08:25 [From Bactrim] ALLERGY trimethoprim [From Bactrim] Allergy Unknown UNKNOWN-CHILDHOOD Verified 01/14/25 08:25 ALLERGY Home Medications Medication Instructions Recorded Confirmed Type carbamazepine 100 mg 100 mg PO Q OTHER DAY 01/14/25 01/15/25 History tablet,extended release,12 hr folic acid 400 mcg tablet 0.4 mg PO DAILY 01/14/25 01/15/25 History guselkumab 100 mg/mL subcutaneous 100 mg subcut .Q8WKS 01/14/25 01/15/25 History syringe (Tremfya) ketoconazole 2 % shampoo 1 ea topical DIRECTED PRN 01/14/25 01/15/25 History NEEDED medroxyprogesterone 150 mg/mL 150 mg IM .[id number] 01/14/25 01/15/25 History intramuscular syringe (Depo-Provera) oxycodone 5 mg tablet 5 mg PO Q4H PRN severe pain (scale 01/14/25 01/15/25 Rx score 7-10) #20 tabs semaglutide (weight loss) 2.4 2.4 mg subcut WK 01/14/25 01/15/25 History mg/0.75 mL subcutaneous pen injector (Werenettavjoselito) spironolactone 50 mg tablet 50 mg PO BID 01/14/25 01/15/25 History triamcinolone acetonide 0.1 % 1 applic topical DIRECTED PRN 01/14/25 01/15/25 History topical cream SKIN IRRITATIONS loratadine 10 mg tablet (Claritin) 10 mg PO DAILY 01/15/25 01/15/25 History ondansetron 8 mg disintegrating 8 mg PO Q8H PRN nausea and 01/15/25 01/15/25 Rx tablet vomiting #30 tabs zinc 50 mg tablet 50 mg PO DAILY 01/15/25 01/15/25 History Patient History Medical History Eczema Psoriasis Surgical History S/P insertion of dental implant H/O tooth extraction H/O LEEP Social History Smoking Status: Former smoker Tobacco Type: Cigarettes Smoking End Date: 2011; Second Hand Exposure: No; Do You Dip or Chew Tobacco: No; Hx Alcohol Use: Yes Alcohol type: hard liquor Hx Substance Use: No Preferred Language: Kazakh Communication Ability: Effective Garageman Required: No Beliefs That Will Affect Care: None Current Living Situation: Significant Other Other Information That Helps Us Care for You: No Feels Safe at Home: Yes Safety Concerns: Feels Safe At This Time Assistive Devices: None Review of Systems Review of Systems: All other findings negative except as noted in HPI. Physical Exam Constitutional: WD/WN, vitals as above Respiratory: normal respiratory effort, lungs clear to auscultation Cardiovascular: Rate/Rhythm: regular rate and regular rhythm Gastrointestinal (Abdomen): + upper abd pain, LUQ pain w/ palpation. scattered abd bruising at incision sites Skin: no rashes, warm and dry Results & Data Vital Signs (Past 12 Hours) Vital Signs Temp Pulse Resp BP BP Pulse Ox O2 Del Method 01/17/25 13:57 98.2 F 118 H 22 150/110 H 99 Room Air 01/17/25 07:54 98.6 F 89 17 141/86 H 97 Room Air 01/17/25 03:18 98.2 F 100 H 16 140/94 96 Room Air Laboratory Results 01/17/25 Range/Units 06:08 WBC 9.64 (4.8-10.8) K/ul RBC 3.47 L (4.20-5.40) M/uL Hgb 10.8 L (12.0-16.0) g/dL Hct 31.9 L (37.0-47.0) % MCV 91.9 (80.0-100.0) fL MCH 31.1 (25.0-34.0) pg MCHC 33.9 (32.0-36.0) g/dL RDW Std Deviation 40.6 (36.4-46.3) fL RDW Coeff of Crystal 12.0 (11.5-14.5) % Plt Count 237 (130-400) K/uL MPV 9.5 (9.4-12.4) fL Immature Gran % (Auto) 0.4 % Neut % (Auto) 77.9 % Lymph % (Auto) 12.7 % Harvey % (Auto) 7.5 % Eos % (Auto) 1.1 % Baso % (Auto) 0.4 % Neut # (Auto) 7.51 H (1.40-6.50) K/uL Lymph # (Auto) 1.22 (1.20-3.40) K/uL Harvey # (Auto) 0.72 H (0.11-0.59) K/uL Eos # (Auto) 0.11 (0.00-0.50) K/uL Baso # (Auto) 0.04 (0.00-0.20) K/uL Immature Gran # (Auto) 0.04 (0.01-0.20) K/uL Sodium 139 (136-145) mmol/L Potassium 3.5 (3.5-5.1) mmol/L Chloride 109 H (98-107) mmol/L Carbon Dioxide 23 (21-32) mmol/L Anion Gap 7 (3-11) BUN 6 (6-23) mg/dl Creatinine 0.49 L (0.6-1.2) mg/dl Est Cr Clr Drug Dosing 158.4 ml/min eGFR 119.11 BUN/Creatinine Ratio 12.2 (10-20) Glucose 91 (70-99(Fasting)) mg/dl Calcium 8.0 L (8.6-10.3) mg/dl Total Bilirubin 1.5 H (0.2-1.0) mg/dl AST 23 (13-39) U/L ALT 52 (7-52) U/L Alkaline Phosphatase 53 (34-104) U/L Total Protein 5.9 L (6.0-8.3) gm/dl Albumin 3.3 L (3.4-5.0) gm/dl Globulin 2.6 (2.5-4.0) gm/dl Albumin/Globulin Ratio 1.3 (0.9-2) PG Care Time/CCT Total # of Minutes Spent Total Time Spent with Patient: Total time spent is greater than 50% in coordination of care (as documented) at patient's floor/unit and/or counseling patient: Coding Level of Care Code 31075 IN/OBS CONSULT LVL 4,60M Diagnoses Status post cholecystectomy Z90.49
--- NOTE | 2025-01-17 14:40 | Hospitalist Consultation ---
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 She is s/p laparoscopic cholecystectomy on 01/14 for acute cholecystitis, back in hospital the next day 01/15 after d/c home with abd pain, nausea, and vomiting. Initially elevated liver enzymes, but reassuring MRCP and improvement of LFTs today 01/17. New recurrence of 11/26 abd pain with nausea and nonbloody possibly bilious emesis x3 about 2hrs after regular diet for lunch. Continued admission necessary for further investigation for source of abdominal pain with concomitant nausea and emesis. #abdominal pain / nausea/ vomiting #s/p laparoscopic cholecystectomy obtained KUB and cxr after start of new 10 upper abdominal pain with nausea and emesis x3, nonbloody but possibly bilious; MRCP negative for retained stone; lipase and LFTs WNL; vitals WNL Suspect pain and n/v is from postop ileus and gaseous distension of bowels as this is common after abdominal/GI surgery, possibly worsened GI motility due to opioids for pain KUB showing mild gaseous prominence of several colonic loops, but no transition zone indicating SBO Cxr showing bibasilar atelectasis, unchanged from prior cxr GI consulted as well, proceeding with EGD tomorrow 01/18 for investigation of possible gastritis vs peptic ulcer disease Pain and nausea control as ordered: - pain: tylenol 1000mg IV q8h for 1-3 pain; toradol 15mg IV q6h for 4-6 pain; be wary of opioids oxycodone 5mg PO q4h for 7-10 pain and dilaudid 0.5mg IV q4h prn for breakthrough pain - nausea: compazine 10mg IV q6h; zofran 4mg IV q6h Continue clears for now, consider advancing diet as tolerated added LR at 100cc while diet is minimal; NPO midnight for EGD on 01/18 #chest pain noted with L shoulder pain, though pt feels it was likely gas/bloating related EKG obtained at that time with no acute findings additional EKG for recurrence of reported chest pain VTE ppx: lovenox Diet: clears for now, NPO midnight Supervising Physician Co-Signing Physician Notes I personally examined the patient and verified all huerta points of history and exam, discussed case, and agree with decision making with Dr Multani attempted to see pt twice, sleeping and appearing comfortable each time. labs and diagnostics reviewed. vitals noted, nad resting comfortably breathing unlabored no accessory muscles good effort abdominal pain/nausea - resting comfortably now; vitals stable, labs and imaging reassuring. agree w endoscopic w/u as per GI. otherwise as above History of Present Illness Reason for Consultation: n/v, abd pain s/p lap daniel Attending Physician: Mali Hollingsworth, History of Present Illness [place] had a lap daniel on 01/14/25 for acute cholecystitis, was discharged home later that day, then came in 1 day later 01/15 for intractable nausea, vomiting, and abdominal pain. Had elevated liver enzymes prompting MRCP, which did not show evidence of any retained gallstones. This morning 01/17 pt was feeling significantly better and with improvement of LFTs she was planned to be discharged today, however about 2hrs after eating solid lunch she started having intense abd pain with recurrence of nausea and vomiting, vomited about 3 times. Does note she had a BM about an hour after lunch, but no BM or gas since the new pain this afternoon. Had a KUB around 1500 looking for signs of SBO. Currently only having 2/10 abdominal pain, minimal nausea. Tolerating ice chips. Denies history of prior abdominal surgeries, denies hx of small bowel obstruction. Allergies Allergy/AdvReac Type Severity Reaction Status Date / Time Sulfa (Sulfonamide Allergy Unknown UNKNOWN-CHILDHOOD Verified 01/14/25 08:25 Antibiotics) ALLERGY sulfamethoxazole Allergy Unknown UNKNOWN-CHILDHOOD Verified 01/14/25 08:25 [From Bactrim] ALLERGY trimethoprim [From Bactrim] Allergy Unknown UNKNOWN-CHILDHOOD Verified 01/14/25 08:25 ALLERGY Home Medications Medication Instructions Recorded Confirmed Type carbamazepine 100 mg 100 mg PO Q OTHER DAY 01/14/25 01/15/25 History tablet,extended release,12 hr folic acid 400 mcg tablet 0.4 mg PO DAILY 01/14/25 01/15/25 History guselkumab 100 mg/mL subcutaneous 100 mg subcut .Q8WKS 01/14/25 01/15/25 History syringe (Tremfya) ketoconazole 2 % shampoo 1 ea topical DIRECTED PRN 01/14/25 01/15/25 History NEEDED medroxyprogesterone 150 mg/mL 150 mg IM .[id number] 01/14/25 01/15/25 History intramuscular syringe (Depo-Provera) oxycodone 5 mg tablet 5 mg PO Q4H PRN severe pain (scale 01/14/25 01/15/25 Rx score 7-10) #20 tabs semaglutide (weight loss) 2.4 2.4 mg subcut WK 01/14/25 01/15/25 History mg/0.75 mL subcutaneous pen injector (Wegovy) spironolactone 50 mg tablet 50 mg PO BID 01/14/25 01/15/25 History triamcinolone acetonide 0.1 % 1 applic topical DIRECTED PRN 01/14/25 01/15/25 History topical cream SKIN IRRITATIONS loratadine 10 mg tablet (Claritin) 10 mg PO DAILY 01/15/25 01/15/25 History ondansetron 8 mg disintegrating 8 mg PO Q8H PRN nausea and 01/15/25 01/15/25 Rx tablet vomiting #30 tabs zinc 50 mg tablet 50 mg PO DAILY 01/15/25 01/15/25 History Patient History Medical History (Updated 01/16/25 @ 12:40 by Arielle Merino PA-C) Eczema Psoriasis Surgical History (Updated 01/17/25 @ 16:36 by Ellie Fry RN) Hx laparoscopic cholecystectomy (01/14/25) Laparoscopic Cholecystectomy(Not Applicable) - Mali Hollingsworth, S/P insertion of dental implant H/O tooth extraction H/O LEEP Social History Smoking Status: Former smoker Tobacco Type: Cigarettes Smoking End Date: 2011; Second Hand Exposure: No; Do You Dip or Chew Tobacco: No; Hx Alcohol Use: Yes Alcohol type: hard liquor Hx Substance Use: No Preferred Language: Ecuadorean Communication Ability: Effective Reading Tutor Required: No Beliefs That Will Affect Care: None Current Living Situation: Significant Other Other Information That Helps Us Care for You: No Feels Safe at Home: Yes Safety Concerns: Feels Safe At This Time Assistive Devices: None Physical Exam Physical Exam: Gen: appearing in mild distress CV: RRR, no m/r/g Resp: clear to auscultation b/l, no w/r/R GI/Abd: hypoactive bowel sounds; abd soft, nondistended; tenderness to palpation of RUQ, epigastric, and LUQ without rebound or guarding, otherwise abdomen nontender to palpation; surgical incisions well-approximated with skin glue in place, no erythema, warmth, swelling, or tenderness to palpation Ext: no edema b/l LE, calves nontender to palpation Results & Data Results & Data Vital Signs (Past 12 Hours) Vital Signs Temp Pulse Resp BP BP Pulse Ox O2 Del Method 01/17/25 13:57 36.8 C 118 H 22 150/110 H 99 Room Air 01/17/25 07:54 37.0 C 89 17 141/86 H 97 Room Air 01/17/25 03:18 36.8 C 100 H 16 140/94 96 Room Air Resident Activity Tracking Resident Involvement: Resident Care Provided Care Provided: Adult Hospital Medicine (2) Nausea & vomiting Vomiting type: unspecified Qualified Code(s): R11.2 - Nausea with vomiting, unspecified
--- NOTE | 2025-01-17 15:24 | XRay Report ---
XR chest 1V portable HISTORY: 44 years-old Female tachy, epigastric pain, n/v s/p lap daniel acute chest pain with tachyca rdia COMPARISON: CTA chest 01/16/2025 TECHNIQUE: PA view of the chest FINDINGS: Cardiomediastinal and hilar silhouettes are unchanged. Mild blunting of the costophrenic angles again noted. No pneumothorax or overt pulmonary edema. Linear bibasilar consolidative opacities are again noted. Cholecystectomy. Bones appear grossly intact. IMPRESSION: Linear bibasilar consolidation again noted suggestive of atelectasis. Pneumonia considere d less likely. ACT 112: Negative or not required by law. The above report was generated using voice recognition software. It may contain grammatical, syntax o r spelling errors. Electronically signed by: Darius Ernst M.D. 01/17/2025 3:23 PM
--- NOTE | 2025-01-17 15:37 | XRay Report ---
KUB CLINICAL HISTORY: n/v, h/o lap daniel COMPARISON STUDY: CT scan dated 01/16/2025 FINDINGS: There are surgical clips in the right upper quadrant consistent with a prior cholecystectom y. There is mild gaseous prominence of several colonic loops. There are no transition zones indicate bowel obstruction. A right pelvic basin calcification is consistent with a phlebolith. IMPRESSION: 1. Postsurgical changes of a prior cholecystectomy 2. No evidence of bowel obstruction ACT 112: Negative or not required by law. Electronically signed by: Ishan Chase M.D. 01/17/2025 3:36 PM
--- NOTE | 2025-01-17 18:04 | Billing Data ---
Date of Service January 17, 2025 Coding Level of Care Code 43051 SUB INP/OBS CARE
[2025-01-17] MEDS: LACTATED RINGER'S 1,000 ML IV SCH (18:13)
[2025-01-18 07:11] LABS: Hematocrit (blood only) 32.1 % (37.0-47.0); Hemoglobin 11.1 g/dL (12.0-16.0); Immature Granulocytes # (auto) 0.02 K/uL (0.01-0.20); Immature Granulocytes % (auto) 0.3 %; Mean Corpuscular Hemoglobin 31.4 pg (25.0-34.0); Mean Corpuscular Volume 90.9 fL (80.0-100.0); Platelet Count 263 K/uL (130-400); RDW Standard Deviation 38.8 fL (36.4-46.3); Red Blood Count 3.53 M/uL (4.20-5.40); White Blood Count 7.91 K/ul (4.8-10.8)
[2025-01-18 07:54] LABS: Alanine Aminotransferase 41.0 U/L (7-52); Albumin Globulin Ratio 1.2 (0.9-2); Albumin Level 3.3 gm/dl (3.4-5.0); Alkaline Phosphatase 73.0 U/L (34-104); Anion Gap 7.0 (3-11); Bilirubin,Total 1.4 mg/dl (0.2-1.0); Blood Urea Nitrogen 5.0 mg/dl (6-23); Calcium 8.2 mg/dl (8.6-10.3); Carbon Dioxide 25.0 mmol/L (21-32); Chloride 107.0 mmol/L (98-107); Creatinine Clr Calc Pharmacy 165.2 ml/min; Globulin 2.7 gm/dl (2.5-4.0); Glucose 91.0 mg/dl (70-99(Fasting)); Potassium 3.5 mmol/L (3.5-5.1); Sodium 139.0 mmol/L (136-145); Total Protein 6.0 gm/dl (6.0-8.3)
--- NOTE | 2025-01-18 08:41 | Gastroenterology Progress Note ---
Date of Service January 18, 2025 Assessment & Plan (1) Nausea & vomiting: Plan: Endoscopy (2) Abdominal pain: Plan: Endoscopy Admission and Anticipated Discharge Date Admission Date: January 15, 2025 Subjective Less abdominal pain still with some nausea vomited yesterday no recent vomiting. No shortness of breath no chest pain. Physical Exam Physical Exam: No acute distress Respiratory rate regular Cardiac rhythm regular Abdomen soft nontender Results & Data Results & Data Vital Signs (Past 12 Hours) Vital Signs Temp Pulse Resp BP BP Pulse Ox O2 Del Method 01/18/25 08:28 36.4 C L 80 16 147/97 H 99 Room Air 01/18/25 07:40 36.8 C 81 17 146/86 H 98 Room Air 01/17/25 21:38 37.1 C 78 16 163/98 H 98 Room Air PG Care Time/CCT Total # of Minutes Spent Total Time Spent with Patient: Total time spent is greater than 50% in coordination of care (as documented) at patient's floor/unit and/or counseling patient: Coding Level of Care Code None Diagnoses Nausea & vomiting R11.2 Vomiting type: unspecified Abdominal pain R10.84 Abdominal location: generalized (1) Nausea & vomiting Vomiting type: unspecified Qualified Code(s): R11.2 - Nausea with vomiting, unspecified (2) Abdominal pain Abdominal location: generalized Qualified Code(s): R10.84 - Generalized abdominal pain
[2025-01-18] MEDS ORDERED: ATROPINE SULFATE 0.1 MG/ML 10ML SYR IV PRN (08:43)
--- NOTE | 2025-01-18 08:43 | Anesthesiology Consultation ---
Date of Service January 18, 2025 Assessment & Plan Chart Review Chart Review: Acceptable Risk for Surgery and Patient NOT seen in Pre Admission Testing Consults Requested none ASA ASA3 Proposed Anesthesia Anesthesia Type: MAC Risk / Benefits Reviewed With: PT / POA / Parent / Guardian, Accepts Plan and Informed Consent Obtained History Surgery Operation Date: 01/18/25 16:45 Proposed Procedures p Esophagogastroduodenoscopy Dr. Wanda Muñoz MD Height/Weight Height: 5 ft 4 in Weight: 89.2 kg Allergies Allergy/AdvReac Type Severity Reaction Status Date / Time Sulfa (Sulfonamide Allergy Unknown UNKNOWN-CHILDHOOD Verified 01/14/25 08:25 Antibiotics) ALLERGY sulfamethoxazole Allergy Unknown UNKNOWN-CHILDHOOD Verified 01/14/25 08:25 [From Bactrim] ALLERGY trimethoprim [From Bactrim] Allergy Unknown UNKNOWN-CHILDHOOD Verified 01/14/25 08:25 ALLERGY Medications Home Medications Medication Instructions Recorded Confirmed Last Taken carbamazepine 100 mg 100 mg PO Q OTHER DAY 01/14/25 01/15/25 01/14/25 07:00 tablet,extended release,12 hr folic acid 400 mcg tablet 0.4 mg PO DAILY 01/14/25 01/15/25 01/15/25 06:00 guselkumab 100 mg/mL subcutaneous 100 mg subcut .Q8WKS 01/14/25 01/15/25 Unknown syringe (Tremfya) ketoconazole 2 % shampoo 1 ea topical DIRECTED PRN 01/14/25 01/15/25 Unknown NEEDED medroxyprogesterone 150 mg/mL 150 mg IM .[id number] 01/14/25 01/15/25 11/17/24 07:00 intramuscular syringe (Depo-Provera) oxycodone 5 mg tablet 5 mg PO Q4H PRN severe pain (scale 01/14/25 01/15/25 Unknown score 7-10) #20 tabs semaglutide (weight loss) 2.4 2.4 mg subcut WK 01/14/25 01/15/25 01/09/25 08:00 mg/0.75 mL subcutaneous pen injector (Sanaz) spironolactone 50 mg tablet 50 mg PO BID 01/14/25 01/15/25 01/15/25 19:00 triamcinolone acetonide 0.1 % 1 applic topical DIRECTED PRN 01/14/25 01/15/25 Unknown topical cream SKIN IRRITATIONS loratadine 10 mg tablet (Claritin) 10 mg PO DAILY 01/15/25 01/15/25 01/14/25 07:00 ondansetron 8 mg disintegrating 8 mg PO Q8H PRN nausea and 01/15/25 01/15/25 Unknown tablet vomiting #30 tabs zinc 50 mg tablet 50 mg PO DAILY 01/15/25 01/15/25 Unknown Active Medications Generic Name Dose Route Start Last Admin Trade Name Freq PRN Reason Stop Dose Admin Carbamazepine 100 mg 01/16/25 09:00 01/16/25 13:29 Carbamazepine Xr 100 Mg Tabcr PO 02/15/25 08:59 100 mg Q2D@0900 ABEBA Administration Enoxaparin Sodium 40 mg 01/17/25 09:00 01/17/25 09:17 Enoxaparin Inj 40 Mg/0.4 Ml Syr SQ 02/16/25 08:59 40 mg QAM ABEBA Administration Folic Acid 400 mcg 01/16/25 09:00 01/17/25 09:18 Folic Acid 400 Mcg Tab PO 02/15/25 08:59 400 mcg DAILY ABEBA Administration Hydromorphone HCl 0.5 mg 01/16/25 11:38 01/17/25 13:52 Hydromorphone Inj 0.5 Mg/0.5 Ml Syr IV 01/30/25 09:53 0.5 mg Q4H PRN Administration Breakthrough Pain Prochlorperazine 10 mg/ 10 mls @ 5 mls/min 01/16/25 09:54 01/17/25 14:14 Syringe IV 02/15/25 09:53 5 mls/min Q6H PRN Administration Nausea And Vomiting Acetaminophen 1,000 mg in 100 mls @ 400 mls/hr 01/17/25 14:07 01/18/25 02:28 Ofirmev IV 01/20/25 14:06 Infused Q8H PRN Infusion Mild Pain (Scale 1, 2, 3) Lactated Ringer's 1,000 mls @ 100 mls/hr 01/17/25 16:15 01/18/25 08:16 Lr IV 01/20/25 16:14 0 mls/hr .Q10H ABEBA Infusion Ketorolac Tromethamine 15 mg 01/16/25 11:35 01/17/25 20:38 Ketorolac Tromethamine 15 Mg/Ml Vial IV 01/21/25 11:34 15 mg Q6H PRN Administration Moderate Pain (Scale 4, 5, 6) Loratadine 10 mg 01/16/25 09:00 01/17/25 09:18 Loratadine 10 Mg Tab PO 02/15/25 08:59 10 mg DAILY ABEBA Administration Ondansetron HCl 4 mg 01/15/25 19:59 01/18/25 02:05 Ondansetron Inj 2 Mg/Ml 2 Ml Vial IV 02/14/25 19:58 4 mg Q6H PRN Administration Nausea And Vomiting Oxycodone HCl 5 mg 01/16/25 11:35 01/17/25 11:20 Oxycodone Hcl Ir 5 Mg Tab (Immediate Release) PO 01/30/25 11:34 5 mg Q4H PRN Administration Severe Pain (Scale 7, 8, 9,10) NPO Date Last Intake of Fluids: 01/17/25 Time Last Intake of Fluids: 21:00 Date Last Intake of Solids: 01/17/25 Time Last Intake of Solids: 12:00 Past Medical History Medical History Eczema Psoriasis obese anemia sleep apnea HLD TMJ Exercise / Class Metabolic Activity II 4-5 Yardwork/Stairs/Walk up hill Past Surgical History Surgical History Hx laparoscopic cholecystectomy (01/14/25) Laparoscopic Cholecystectomy(Not Applicable) - Mali Hollingsworth DO S/P insertion of dental implant H/O tooth extraction H/O LEEP Past Anesthesia History No Hx of Anesthesia Complications and No Family Hx of Anesthesia Complications History of PONV No Hx of PONV and No Hx of Motion Sickness Social History Smoking Status: Former smoker Do You Dip or Chew Tobacco: No Smoking End Date: 2011 Hx Alcohol Use: Yes Alcohol type: hard liquor alcohol intake frequency: a few times a month Hx Substance Use: No substance use type: marijuana Last Used Substance Other:: used decades ago Physical Exam Vital Signs Last Vital Signs Temp 36.4 C L 01/18/25 08:28 Pulse 80 01/18/25 08:28 Resp 16 01/18/25 08:28 BP 147/97 H 01/18/25 08:28 Pulse Ox 99 01/18/25 08:28 O2 Del Method Room Air 01/18/25 08:28 Constitutional + obese; no acute distress ENMT Mouth: no dentition abnormality Thyromental Distance: < 3.5 Finger Breadths Mallampati Class: II Neck normal visual inspection and trachea midline; neck extension not limited Respiratory normal respiratory effort; no respiratory distress Auscultation: lungs clear to auscultation bilaterally Cardiovascular Rate/Rhythm: regular rate and regular rhythm Heart Sounds: no murmur Vessels: no carotid bruit Musculoskeletal Spine: normal cervical ROM and no pain with cervical ROM Extremities: extremities normal to inspection; full ROM of extremities Neurologic moves all extremities Motor/Sensory: no sensory deficit Psychiatric Orientation: alert and oriented x 3 Testing Laboratory Results 01/18/25 06:55 01/18/25 06:55 PT 11.9 Seconds (9.0-12.0) 01/16/25 05:56 INR 1.1 (0.9-1.1) 01/16/25 05:56 APTT 26 Seconds (21-31) 01/16/25 05:56 Urine Color Yellow 01/15/25 15:10 Urine Appearance Clear (Clear) 01/15/25 15:10 Urine pH 7.0 (4.5-7.5) 01/15/25 15:10 Ur Specific [place] 1.014 (1.000-1.030) 01/15/25 15:10 Urine Protein 1+ (Negative) H 01/15/25 15:10 Urine Glucose (UA) Negative (Negative) 01/15/25 15:10 Urine Ketones Trace (Negative) H 01/15/25 15:10 Urine Nitrite Negative (Negative) 01/15/25 15:10 Ur Leukocyte Esterase Negative (Negative) 01/15/25 15:10 Urine WBC (Auto) 6-10 /hpf (0-5) H 01/15/25 15:10 Urine RBC (Auto) 0-2 /hpf (0-2) 01/15/25 15:10 U Hyaline Cast (Auto) 3-5 /lpf (0-2) H 01/15/25 15:10 U Epithel Cells (Auto) 3-5 /hpf (0-2) H 01/15/25 15:10 Urine Bacteria (Auto) None Seen (None Seen) 01/15/25 15:10 Electrocardiogram Date: 01/17/25 Findings: + NSR @ (@ 81 w/ SA;low voltage QRS)
--- NOTE | 2025-01-18 09:00 | GI REPORT ---
[facility] Patient: BRANDIN PHILLIPS : 1980 Sex at : Female Age: 44 Years Procedure: Upper GI endoscopy Date: 01/18/2025 Attending Physician: Dejon Muñoz MD Referring MD: Mali Hollingsworth DO Indications: - Nausea and vomiting - Epigastric abdominal pain Medications: - Monitored Anesthesia Care Complications: - No immediate complications. Procedure: - Prior to the procedure, a History and Physical was performed, and patient medications and allergies were reviewed. The patient's tolerance of previous anesthesia was also reviewed. The risks and benefits of the procedure and the sedation options and risks were discussed with the patient. All questions were answered, and informed consent was obtained. [Anticoagulant Agents] [Days Prior to Procedure]. [ASA Grade]. After reviewing the risks and benefits, the patient was deemed in satisfactory condition to undergo the procedure. - The egd scope was introduced through the mouth and advanced to the second part of the duodenum. - The upper GI endoscopy was accomplished without difficulty. - The patient tolerated the procedure well. Findings: - The examined esophagus was normal. - Diffuse moderate inflammation characterized by friability, erosions and erythema was found in the gastric antrum. Biopsies were obtained [Site] [Device] [Purpose]. Biopsies were taken with a cold forceps for Helicobacter pylori testing. - Diffuse moderate mucosal changes characterized by erythema and erosion were found in the duodenal bulb. Impression: - Normal esophagus. - Acute gastritis, characterized by friability, erosions and erythema. Biopsied. - Biopsies were obtained. - Mucosal changes in the duodenum c/w duodenitis. Recommendation: - Resume previous diet. - Patient has a contact number available for emergencies. The signs and symptoms of potential delayed complications were discussed with the patient. Return to normal activities tomorrow. Written discharge instructions were provided to the patient. Procedure Code(s): - 32828, Esophagogastroduodenoscopy, flexible, transoral; with biopsy, single or multiple Diagnosis Code(s): - R10.13, Epigastric pain - K29.00, Acute gastritis without bleeding - K31.89, Other diseases of stomach and duodenum CPT(R) - 2023 copyright [employer]. All Rights Reserved. The CPT codes, CCI edits and ICD codes generated are intended as suggestions and were generated based on input data. These codes are preliminary and upon certified coder review may be revised to meet current compliance and payer requirements. The provider is responsible for the final determination of appropriate codes, and modifiers. Dejon Muñoz MD This document has been electronically signed. Note Initiated:01/18/2025 Note Completed:01/18/2025 8:59 AM \\[id number]
--- NOTE | 2025-01-18 09:23 | Anesthesiology Progress Note ---
Date of Service January 18, 2025 Anesthesia Post Procedure Vital Signs Vital Signs: Temp Pulse Resp BP BP Pulse Ox O2 Del Method 01/18/25 09:13 69 20 157/102 H 99 Room Air 01/18/25 08:58 78 24 149/108 H 97 Room Air 01/18/25 08:28 36.4 C L 80 16 147/97 H 99 Room Air 01/18/25 07:40 36.8 C 81 17 146/86 H 98 Room Air 01/17/25 21:38 37.1 C 78 16 163/98 H 98 Room Air 01/17/25 15:28 37.0 C 84 20 161/96 H 97 Room Air 01/17/25 13:57 36.8 C 118 H 22 150/110 H 99 Room Air Pain Intensity Abdomen: Pain Intensity: 1 Transfer of Care Handoff Completed per policy Notes Mental Status: alert / awake / arousable Patient Amnestic to Procedure: Yes Nausea / Vomiting: adequately controlled Pain: adequately controlled Airway Patency, RR, SpO2: stable & adequate BP & HR: stable & adequate Hydration State: stable & adequate Anesthetic Complications: no major complications apparent
[2025-01-18 09:29] VITALS: O2SAT 98
[2025-01-18] MEDS: PROPOFOL IV EMULSION 10 MG/ML 20 ML VIAL IV ONE (09:54)
[2025-01-18] MEDS: LIDOCAINE 2% 2 ML VIAL/AMP(20MG/ML) INFIL ONE (09:54)
--- NOTE | 2025-01-18 10:10 | Electrocardiogram Report ---
Test Reason : Blood Pressure : */* mmHG Vent. Rate : 81 BPM Atrial Rate : 81 BPM P-R Int : 134 ms QRS Dur : 74 ms QT Int : 368 ms P-R-T Axes : 62 -7 44 degrees QTcB Int : 427 ms Normal sinus rhythm with sinus arrhythmia Low voltage QRS Borderline ECG When compared with ECG of 14-Jan-2025 02:46, Premature ventricular complexes are no longer Present Confirmed by Henry Kang ([id number]) on 01/18/2025 10:10:32 AM Referred By: REFERRED SELF Confirmed By: Henry Kang
--- NOTE | 2025-01-18 13:47 | Surgery Progress Note ---
Date of Service January 18, 2025 Assessment & Plan (1) Status post cholecystectomy: Plan: Pt here w/ post op abdominal pain s/p lap daniel on 01/14 WBC 7.9, Hbg 11, LFTs downtrending Tb 1.4, AST 16, ALT 41. vitals stable GI performed EGD today which showed gastritis and duodenitis, stomach was biopsied Now on PPI and clears. Tolerating clears thus far, may ADAT Patient denies pain, nausea/vomiting and reports feeling well Will see how she does with food and consider d/c later today, will need to continue on PPI Appreciate medicine and GI assistance Will need f/u with Dr. Kalli Gtz in 2 weeks Admission and Anticipated Discharge Date Admission Date: January 15, 2025 Subjective Patient feels better. Has not taken any pain meds today. Underwent EGD with GI. Tolerating clears thus far. No nausea/vomiting. Physical Exam Physical Exam: awake/alert, no distress Respiratory: normal respiratory effort Gastrointestinal (Abdomen): Inspection/Auscultation: + abdominal surgical incision (c/d/i with some bruising noted); abdomen not distended Percussion/Palpation: abdomen soft; abdomen nontender Results & Data Vital Signs (Past 12 Hours) Vital Signs Temp Pulse Resp BP BP Pulse Ox O2 Del Method 01/18/25 09:28 74 18 154/97 H 98 Room Air 01/18/25 09:13 69 20 157/102 H 99 Room Air 01/18/25 08:58 78 24 149/108 H 97 Room Air 01/18/25 08:28 97.5 F L 80 16 147/97 H 99 Room Air 01/18/25 07:40 98.2 F 81 17 146/86 H 98 Room Air PG Care Time/CCT Total # of Minutes Spent Total Time Spent with Patient: Total time spent is greater than 50% in coordination of care (as documented) at patient's floor/unit and/or counseling patient: Coding Level of Care Code 67696 Post Operative Follow-Up Diagnoses Status post cholecystectomy Z90.49
--- NOTE | 2025-01-18 14:43 | Hospitalist Progress Note ---
Date of Service January 18, 2025 Assessment & Plan (1) Status post cholecystectomy: (2) Nausea & vomiting: (3) Elevated LFTs: Plan This patient is a 44yo female with PMHx of psoriasis on tremfya, obesity on wegovy, trigeminal neuralgia on carbamazepine, and cystic acne on spironolac tone, who is s/p laparoscopic cholecystectomy on 01/14 for acute cholecystitis.she presented back in hospital the next day 01/15 after d/c to home home with abd pain, nausea, and vomiting. Initially elevated liver enzymes, but reassuring MRCP and improvement of LFTs since then. New recurrence of 10/10 abd pain with nausea and nonbloody possibly bilious emesis x3 about 2hrs after regular diet for lunch. CT angiogram of the chest was negative for PE. Continued admission necessary for further investigation for source of abdominal pain with concomitant nausea and emesis. #Abdominal pain/nausea/vomiting/s/p laparoscopic cholecystectomy-obtained KUB and cxr after start of new 10/10 upper abdominal pain with nausea and emesis x3, nonbloody but possibly bilious; MRCP negative for retained stone; lipase normal and LFTs elevated but then were improving. She possibly could have had a gallstone which passed on its own, causing the elevated LFTs. KUB showing mild gaseous prominence of several colonic loops, but no SBO. Cxr showing bibasilar atelectasis, unchanged from prior cxr GI consulted-performed EGD on 01/18 which showed significant gastritis and duodenitis-this was likely secondary to stress of acute cholecystitis and hospitalization with surgery. She was also on Wegovy which could have worsened her postoperative nausea/vomiting. She was treated with IV fluids and antiemetics and had improvement. She had normal postoperative pain at the time of discharge - Start Protonix 40 mg p.o. twice daily on discharge - Avoid NSAIDs and aspirin with gastritis; avoid oxycodone and zinc if possible as these could precipitate nausea - Hold off on restarting Wegovy until nausea is completely resolved - Follow-up with surgeon as planned for follow-up within 2 weeks for cholecystectomy - Follow-up on pathology of biopsies taken during EGD after discharge - Recommend follow-up LFTs in 1 to 2 weeks after discharge to ensure completely back to normal-can be ordered by PCP and/or surgery #chest pain-noted with L shoulder pain, though pt feels it was likely gas/bloating related. EKG obtained at that time with no acute findings. #Psoriasis-on Tremfya every 8 weeks, no acute issues. She is not due for another dose of this for at least another 4 to 5 weeks at which time she should be healed from her surgery and could proceed with the injection #Trigeminal neuralgia-no acute issues - Continue home carbamazepine #Cystic acne-no acute issues - Continue home spironolactone VTE ppx: lovenox Disposition-stable for discharge to home. I discussed her care with surgery PA on the day of discharge Admission and Anticipated Discharge Date Admission Date: January 15, 2025 Subjective Patient reports feeling better. She is tolerating clear liquids diet but is tired of having liquids and would like to try regular food. She moved her bowels today. She has not taken anything for pain since 2 in the morning. She is anxious to get home. Denies any other concerns. I discussed her care with the surgery PA. Physical Exam Constitutional: WD/WN, vitals as above Respiratory: normal respiratory effort, lungs clear to auscultation Cardiovascular: RRR, no murmur, no edema Gastrointestinal (Abdomen): Inspection/Auscultation: + abdomen abnormal to inspection (Laparoscopic incisions present with surrounding ecchymosis) Percussion/Palpation: + abdomen tender (Mild around incision sites without guarding or rebound) and abdomen soft; no guarding Psychiatric: A+Ox3, euthymic affect Results & Data Results & Data Vital Signs (Past 12 Hours) Vital Signs Temp Pulse Resp BP BP Pulse Ox O2 Del Method 01/18/25 09:28 74 18 154/97 H 98 Room Air 01/18/25 09:13 69 20 157/102 H 99 Room Air 01/18/25 08:58 78 24 149/108 H 97 Room Air 01/18/25 08:28 36.4 C L 80 16 147/97 H 99 Room Air 01/18/25 07:40 36.8 C 81 17 146/86 H 98 Room Air Laboratory Results CBC, CMP reviewed PG Care Time/CCT Total # of Minutes Spent Total Time Spent with Patient: Total time spent is greater than 50% in coordination of care (as documented) at patient's floor/unit and/or counseling patient: Coding Level of Care Code 51724 SUB INP/OBS CARE 2/35MIN Diagnoses Status post cholecystectomy Z90.49 Nausea & vomiting R11.2 Vomiting type: unspecified Elevated LFTs R79.89 (2) Nausea & vomiting Vomiting type: unspecified Qualified Code(s): R11.2 - Nausea with vomiting, unspecified
[2025-01-18 15:18] VITALS: BP 148/90; PULSE 90; RESP 17; TEMP 98.4
--- NOTE | 2025-01-21 05:11 | Coding Query ---
CODING QUERY To promote full compliance with coding requirements relating to patient care, provider participation is requested in all cases of press department manager uncertainty. Please assist us with the question(s) below: Coding Question(s): Pt admitted one day after lap cholecystectomy with n/v and abdominal pain. EGD revealed gastritis & duodenitis. Wegovy held . Pt also with increase in transaminase & bilirubin on admission , post daniel stones ruled out. Please document below, if known or suspected, the etiology of the post cholecystomy abd pain & nausea and vomiting. Thanks for your help! Henrry Ghosh [facility] Physician's Response(s): Multifactorial, typical post operative pains compounded with gastritis and duodenitis which caused nausea/vomiting. The temporary elevation in transaminases is nonspecific. Can happen with any GI irritation or illness. Thanks Principal Diagnosis: "that condition established after study, to be chiefly responsible for occasioning the admission of the patient to the hospital for care." Co-Existing Principal Diagnosis: "when two or more diagnoses equally meet the criteria for principal diagnosis as determined by the circumstances of admission, diagnostic work up, and/or therapy provided, and the Alphabetic Index, Tabular List, or another coding guideline does not provide sequencing direction, any one of the diagnoses may be sequenced first." "When the physician has documented what appears to be a current diagnosis in the body of the record, but has not included the diagnosis in the final diagnostic statement, the physician should be asked whether the diagnosis should be added." (Source Coding [facility] 2 QTR90. p3-4) [facility]
--- NOTE | 2025-01-22 15:12 | Discharge Summary ---
Date of Service January 18, 2025 Admission HPI Per Admitting Provider This is a 44-year-old female who is well-known to [facility] group general surgery. The patient was seen on 01/06/[address] Gregorio secondary to acute cholecystitis. On 01/14/2025 the patient underwent a laparoscopic cholecystectomy and the patient was able to be discharged home the day of her procedure. The patient does note that she was initially doing well following her procedure. The patient did note that on 01/15/2025 she had some worsening abdominal pain as well as some persistent nausea and vomiting with inability to tolerate much in the way of oral intake. She notes that since her surgery she has not had a bowel movement or passed any flatus. She denies any fevers, shakes, or chills. She denies any chest pain or shortness of breath. She notes that she is urinating without difficulty. She does not report any jaundice of her eyes or skin. Because of her persistent problems she presented to the emergency department. Since arrival to the emergency department she did have labs and imaging which I independently reviewed. She did have a gallbladder/right upper quadrant ultrasound that showed the gallbladder was surgically absent. There is a small amount of free fluid adjacent to the liver. Labs included CBC white blood cell count was elevated 14.6. Hemoglobin and hematocrit were both within normal range. Platelet count was normal. Her chemistry profile showed sodium and potassium as well as the BUN and creatinine were normal. Her total bilirubin was now elevated at 2.0. Her AST and ALT were 63 and 86 respectively. Should be noted that all of these LFT values were normal prior to her surgery. Her phosphatase today is normal at 57 and her lipase is not elevated. Patient does have a urinalysis which is negative for nitrites and leukocyte esterase. She had no bacteria in the specimen and has 6-10 white blood cells per high-power field. The patient did receive analgesics and antiemetics in the emergency department but still was having some persistent nausea and vomiting and therefore admission was requested. At the time of my interview the patient was nontoxic-appearing and she was resting comfortably in bed in no distress Principal Diagnosis post operative pain s/p laparoscopic cholecystectomy gastritis duodenitis Discharge Exam awake, alert, no distress Gastrointestinal (Abdomen) Percussion/Palpation: abdomen soft; abdomen nontender surgical incisions c/d/i with dermabond, some ecchymosis of hoda umbilical incision Discharge Data Allergies Allergy/AdvReac Type Severity Reaction Status Date / Time Sulfa (Sulfonamide Allergy Unknown UNKNOWN-CHILDHOOD Verified 01/14/25 08:25 Antibiotics) ALLERGY sulfamethoxazole Allergy Unknown UNKNOWN-CHILDHOOD Verified 01/14/25 08:25 [From Bactrim] ALLERGY trimethoprim [From Bactrim] Allergy Unknown UNKNOWN-CHILDHOOD Verified 01/14/25 08:25 ALLERGY Consultations 01/15/25 19:40 Consult General Surgery Stat 01/17/25 14:11 Consult Gastroenterology Routine Consult Hospitalist Routine Procedures Performed Operation Date: 01/18/25 16:45 Actual Procedures p EGD Biopsy Cytology - Dejon Muñoz MD Ordered Studies 01/15/25 15:59 US abdomen limited Stat 01/16/25 11:38 MRI MRCP [MR MRCP] Routine 01/16/25 17:25 CT Abd and Pelvis [CT abd pelvis IV con only] Stat CT angio chest PE protocol Stat Hospital Course (1) Status post cholecystectomy: This is a 44yF who is s/p laparoscopic cholecystectomy on 01/14/25 who presented to the [facility] ED on 01/15/25 with post operative pain, nausea/vomiting. The patient was admitted to the hospital for symptom control and further workup. Patient with elevated Tb to 2, therefore an MRCP was obtained. It showed no choledocholithiasis with expected post operative findings. A CT a/p showed no acute post surgical problems. During her stay LFTs eventually downtrended. Over the first 48 hours she continued with intermittent pain, nausea/vomiting. A GI and hospitalist consultation were placed. GI recommended performing an EGD which showed evidence of gastritis and duodenitis. She was started on a PPI. Diet was advanced again as tolerated and patient improved throughout her stay. On 01/22/25 the patient was eventually discharged to home on PPI twice daily for one month. She was instructed to follow up with Dr. Hollingsworth in 2 weeks. Total Time Total Time Spent Total Time Spent (In Minutes): 25 Discharge Plan Discharge Items Patient Disposition: Home - Self-Care Reason For Visit: S/P JOSEE Discharge Diagnosis: post op pain history of laparoscopic cholecystectomy Condition on Discharge: Fair Activity: Per Instructions section Lifting: No more than 10 pounds Bathing Comment: may shower; no soaking in tubs/pools x 2 weeks Exercise/Sports: Wait until after follow-up appointment Driving/Machine Use: no driving while on narcotics for pain Non-emergency contact: Primary Care Provider and Surgeon Call non-emergency contact if: your symptoms worsen, your pain is not controlled, you have a fever, your temperature is above 101.5, your wound has increased redness, your wound has increased drainage and your wound pain has increased Follow-up/Referrals: Dm Evans MD [Primary Care Provider] - Kalli-Mali Gtz DO [Physician] - (Please call to schedule follow up in the office in 2 weeks) Diet: Regular Addtl Attending Provider Instructions: SPECIAL CARE INSTRUCTIONS: * You have skin glue over your incisions called dermabond. you may shower with this on. It will tend to dissolve and fall off within a couple weeks. Do not pick at the skin glue * You may shower. NO soaking in pools or baths for 2 weeks * No lifting greater than 10lbs. No strenuous exercise until cleared by surgeon. Light walking is accepted. * No driving while taking narcotic pain medication; wait at least 3 days * No drinking alcohol while taking narcotic pain medication * May use Ibuprofen/Tylenol over the counter for pain as tolerated. Do not exceed 3grams of Tylenol per 24 hours * Expect some swelling and bruising. * Diet- you may resume your regular diet Call your doctor if: * Temperature above 101 degrees, nausea/vomiting, fever/chills * Pain not relieved by pain medicine ordered * There is increased drainage or redness from any incision * You have any unanswered questions or concerns [phone]. FOLLOW UP VISIT: If not already scheduled, please call the office for a follow-up visit. Office Addtl Hourly Sign Language Interpreter Provider Instructions: If you are still having some nausea by Friday, please do not take your weight loss injection, Wegovy. Zinc can also cause nausea-it is a good idea to hold o ff on taking this medication as well. Sometimes oxycodone can cause nausea-if you are not having significant pain, please stick with just taking acetaminophen as needed for pain. For the gastritis and duodenitis, please avoid taking any NSAIDs such as ibuprofen, Motrin, Aleve, naproxen, or aspirin. Please take the Protonix 40 mg by mouth twice a day for 1 month. Pending Studies at Discharge: Yes Studies:: surgical pathology, stomach biopsy Stand-Alone Forms: My [facility], Smoking Cessation Medications and DC Order Prescriptions: New pantoprazole 40 mg Tablet,Delayed Release (Dr/Ec) 40 mg PO BID Qty: 60 0RF Continued ondansetron 8 mg tablet,disintegrating 8 mg PO Q8H PRN (Reason: nausea and vomiting) Qty: 30 0RF folic acid 400 mcg Tablet 0.4 mg PO DAILY Tremfya 100 mg/mL Syringe 100 mg SUBCUT .Q8WKS ketoconazole 2 % Shampoo 1 ea TOPICAL DIRECTED PRN (Reason: NEEDED) carbamazepine 100 mg Tablet Extended Release 12 Hr 100 mg PO Q OTHER DAY triamcinolone acetonide 0.1 % Cream 1 applic TOPICAL DIRECTED PRN (Reason: SKIN IRRITATIONS) spironolactone 50 mg Tablet 50 mg PO BID medroxyprogesterone [Depo-Provera] 150 mg/mL Syringe 150 mg IM .[id number] Rx Instructions: LAST GIVEN 11/17/24 oxycodone 5 mg tablet 5 mg PO Q4H PRN (Reason: severe pain (scale score 7-10)) Qty: 20 0RF loratadine [Claritin] 10 mg Tablet 10 mg PO DAILY Held Wegovy 2.4 mg/0.75 mL Pen Injector 2.4 mg SUBCUT WK Hold Instructions: Resume on 01/25/25. Hold until feeling better with less nausea. Rx Instructions: SUNDAYS zinc 50 mg Tablet 50 mg PO DAILY Hold Instructions: Resume on 01/25/25. Discharge Orders: Discharge Order (Routine); Ordered 01/18/25 Ordered By: Gina Max Admission Data Admit Date/Time: 01/15/25 20:04 Attending Provider: Mali Hollingsworth Admit Provider: Mali Hollingsworth Primary Care Provider: Dm Evans Other Providers: Bisi Gordon; Eddie Cornell Other Interventions: Discharge Summary Assessment (RN) Last Done: 01/18/25 18:07 Coding Level of Care Code 21542 IN/OBS DISCH 30 MIN/LESS Diagnoses Status post cholecystectomy Z90.49
== END 2025-01-18 19:09 | disposition home or self-care (01) | DRG 940 ==
LOC: ED 14:06 → 3N 20:04